=== PATIENT | male | born 1950 | race African-American/Black ===

== ENCOUNTER 2018-10-30 06:26 | Day surgery (SDC) | payer OTHER ==
[2018-10-29 09:09] VITALS: BMI 31.6
[~2018-10-30 06:26] MED LIST: TOBRAMYCIN/DEXAMETHASONE OPHTH. OINTMENT 1 TUBE OS ONE
[2018-10-30] MEDS ORDERED: CIPROFLOXACIN HCL 0.3% OPHTH 2.5ML BOTTLE OP SCH (06:45)
[2018-10-30] MEDS ORDERED: ACETAMINOPHEN 325 MG TABLET (FP) PO PRN (06:45)
[2018-10-30] MEDS ORDERED: TROPICAMIDE 1% OPHTH SOLN 15 ML BOTTLE OP SCH (06:45)
[2018-10-30] MEDS ORDERED: PHENYLEPHRINE 2.5% OPHTH SOLN 15 ML BOTTLE OP SCH (06:45)
[2018-10-30] MEDS ORDERED: KETOROLAC TROMETHAMINE 0.5% EYE DROP 1 DROP DROPS OP SCH (06:45)
[2018-10-30] MEDS ORDERED: CHONDROITIN SU A/HYALUR SOD 1 KIT ONE (07:10)
[2018-10-30] MEDS ORDERED: TOBRAMYCIN/DEXAMETHASONE OPHTH. OINTMENT 1 TUBE ONE (07:23)
[2018-10-30] MEDS ORDERED: EPINEPHrine/PF 1 MG/1 ML (1:1,000) AMPULE ONE (07:23)
[2018-10-30] MEDS ORDERED: TETRACAINE 0.5% OPHTH SOLN 2 ML BOTTLE ONE (07:23)
[2018-10-30] MEDS ORDERED: LIDOCAINE HCL/PF 1% SDV 5ML VIAL ONE (07:23)
[2018-10-30] MEDS ORDERED: CIPROFLOXACIN HCL 0.3% OPHTH 2.5ML BOTTLE ONE (08:11)
[2018-10-30] MEDS ORDERED: DICLOFENAC SODIUM 0.1% OPHTHALMIC 2.5ML BOTTLE ONE (08:11)
[2018-10-30] MEDS ORDERED: TROPICAMIDE 0.5% OPHTHALMIC SOLN 15 ML BOTTLE ONE (08:11)
[2018-10-30] MEDS ORDERED: PHENYLEPHRINE 2.5% OPHTH SOLN 15 ML BOTTLE OS ONE ×3 (08:40→08:50)
[2018-10-30] MEDS ORDERED: CIPROFLOXACIN 0.3% EYE DROPS 5 ML BOTTLE OS ONE ×3 (08:40→08:50)
[2018-10-30] MEDS ORDERED: TROPICAMIDE 0.5% OPHTHALMIC SOLN 15 ML BOTTLE OS ONE ×3 (08:40→08:50)
[2018-10-30] MEDS ORDERED: KETOROLAC TROMETHAMINE 0.5% EYE DROP 1 DROP DROPS OS ONE ×2 (08:45→08:50)
[2018-10-30] MEDS ORDERED: ALBUTEROL SO4 0.083% IH SOL 2.5 MG/3 ML VIAL.NEB. NEB ONE ×3 (08:46→09:05)
--- NOTE | 2018-10-30 08:49 | HP ---
History & Physical Update - History History: No Change - Physical Physical: No Change - Assessment Assessment: No Change - Plan Plan: No Change (H and P reviewed from Dr. Ordonez from 10/17/18 no changes)
--- NOTE | 2018-10-30 08:54 | HP ---
- Patient Scheduled date of Surgery: 10/30/18 Scheduled Surgical Procedure: Phacoemulsification and cataract extraction with PCIOL Affected Eye: Left Chief Complaint (Indication for surgery): Decreased vision affecting ADLs - Ocular History Other Eye History: Other (MATEO , ptosis OD) Eye Medications: lumigan qhs ou , vigamox o/3 , AT prn Previous Eye Surgery: none - Medical History Illnesses: Hypertension, Hypercholesterolemia, Other (COPD, asthma, gout) Current Medications: Ambulatory Orders Rosuvastatin [Crestor -] 10 mg PO HS 08/30/16 Acetaminophen [Tylenol .Regular Strength -] 650 mg PO Q6H PRN #0 tablet Amlodipine Besylate [Norvasc -] 10 mg PO DAILY #30 tablet 09/03/16 Carvedilol [Coreg -] 25 mg PO BID #60 tablet 09/03/16 Furosemide [Lasix -] 40 mg PO DAILY #30 tablet 09/03/16 Spironolactone [Aldactone -] 25 mg PO DAILY #30 tablet 09/03/16 Allergies/Adverse Reactions: Allergies Allergy/AdvReac Type Severity Reaction Status Date / Time No Known Allergies Allergy Verified 08/30/16 16:05 Ocular Examination - Best Corrected Visual Acuity Distance: Right eye: 20/40- Distance: Left eye: 20/50-2 - External/Slit Lamp Examination Abnormalities: decreased TBUT, spk, stromal scar ST , arcus - Intraocular Pressure Intraocular Pressure - Right eye: 19 Intraocular Pressure-Left eye: 19 - Lens Lens: 1+ NS 2+ cortical superonasally - Vitreous/Retina Vitreous/Retina: C:D 0.35 m/v/p wnl - Special Examination M - Right eye: -0.50-0.50 x 090 M - Left eye: -1.50-150 x 090 K - Right eye: 23.99 K - Left eye: 24.03 AL - Right eye: 23.99 AL - Left eye: 24.03 IOL bag: +18.0 Auooto IOL sulcus: +17.o MN60AC IOL AC: +15.0 MTA4uo - Impression Impression: Cataract Left Eye - Plan Plan: Phacoemulsification and cataract extraction - IOL Left eye Post-hospital care will be provided in office on: 10/31/18
[2018-10-30] MEDS ORDERED: MIDAZOLAM HCL 2 MG/2 ML SINGLE DOSE VIAL ONE (09:07)
[2018-10-30] MEDS ORDERED: TETRACAINE 0.5% OPHTH SOLN 2 ML BOTTLE OS ONE (09:09)
[2018-10-30] MEDS ORDERED: POVIDONE-IODINE 5% OPHTHALMIC PREP 30 ML SOLUTION OS ONE (09:10)
[2018-10-30] MEDS ORDERED: CHONDROITIN SU A/HYALUR SOD 1 KIT IO ONE (09:19)
[2018-10-30] MEDS ORDERED: BSS (NA/CA/MG/K) BALANCED SALT SOLUTION OPHTH SOLN 15 ML BOTTLE OS ONE (09:19)
[2018-10-30] MEDS ORDERED: LIDOCAINE HCL 1% PRESERVATIVE FREE - 30ML VIAL IO ONE (09:19)
[2018-10-30] MEDS ORDERED: EPINEPHrine/PF 1 MG/1 ML (1:1,000) AMPULE SQ ONE (09:25)
[2018-10-30] MEDS ORDERED: TOBRAMYCIN/DEXAMETHASONE OPHTH. OINTMENT 1 TUBE OS ONE (09:45)
--- NOTE | 2018-10-30 09:52 | OP ---
Ophthalmology Operative Note Pre-Operative Diagnosis: Cataract Affected Eye: Left Operation: Phacoemulsification and cataract extraction with PCIOL Findings: Ns Cataract left eye Post-Operative Diagnosis: Same as Pre-op Finishing Area Operator: None Anesthesiologist: Soco Tamayo MD Anesthesia: Topical Specimens Removed: none Estimated blood loss: < 1 cc Drains & Tubes with Location: none Operative Report Dictated: Yes
--- NOTE | 2018-10-30 10:45 | OP ---
DATE OF OPERATION: DATE OF DICTATION: 10/30/2018 PREOPERATIVE DIAGNOSIS: Nuclear sclerotic cataract, left eye. POSTOPERATIVE DIAGNOSIS: Nuclear sclerotic cataract, left eye. PROCEDURE: Phacoemulsification and cataract extraction with insertion of posterior chamber intraocular lens, left eye. SURGEON: Chasity Lind MD BOOT REPAIRER: None. ANESTHESIA: Topical. ANESTHESIOLOGIST: Soco Tamayo MD OPERATIVE PROCEDURE: Before the procedure, the patient received albuterol treatment and was then given tetracaine eye drops and gently sedated and prepped and draped in the usual sterile fashion so as to expose only the left eye. Ophthalmic Betadine was instilled into the inferior fornix. The lashes were taped out of the surgical field. An eyelid speculum was placed into the left eye. A paracentesis was made in inferior clear cornea at the limbus. Then 0.5% of nonpreserved lidocaine 1% was injected into the anterior chamber. Viscoelastic material was instilled into the anterior chamber via the paracentesis. A 2.4-mm keratome was then used to create the main incision in temporal clear cornea at the limbus. A continuous curvilinear capsulorrhexis was performed using a cystotome and Utrata forceps. Hyrodissection of the lens cortex was performed using BSS on a cannula until the nucleus was noted to be freely rotating. The phacoemulsification tip was then inserted via the main wound and used to sculpt 2 perpendicular grooves into the lens nucleus. The lens nucleus was cracked into 4 quadrants. Each quadrant was lifted out of the capsule into the iris plane and individually phacoemulsified. The remaining cortical material was then aspirated using the irrigation and aspiration port. The capsular bag was inflated using Provisc, and a preloaded Hoya lens model [id number], power +18.0 diopter was injected into the capsular bag and centered using a Sinskey hook. The residual viscoelastic material was removed from the anterior chamber using irrigation and aspiration. The wound edges were hydrated using BSS. The wound was tested for leakage. The paracentesis was slightly leaky; therefore, one 10-0 nylon suture was placed across the paracentesis and again checked for leakage. It was found to be watertight. One drop of Tobradex ointment was placed into the eye, and the speculum was removed from the eye, and the eyelid was closed. A sterile dressing and shield were placed over the eye, and the patient was transferred to the recovery room in stable condition and told to follow up in 1 day. CHASITY LIND M.D. [id number]
[2018-10-30 11:06] VITALS: BP 122/70; PULSE 78; TEMP 97.9
== END 2018-10-30 11:19 | disposition home or self-care (01) ==
LOC: JASU-SURG 06:26
PROVIDERS: ATTEND Ophthalmology
PROC: 08RK3JZ Replacement of Left Lens with Synthetic Substitute, Percutaneous Approach (ICD-10-PCS; principal; 2018-10-30 08:30)
DX: H25.12 Age-related nuclear cataract, left eye (principal)

== ENCOUNTER 2018-12-04 06:28 | Day surgery (SDC) | payer OTHER ==
[2018-12-03 11:30] VITALS: BMI 31.1
--- NOTE | 2018-12-03 19:25 | HP ---
- Patient Scheduled date of Surgery: 12/04/18 Scheduled Surgical Procedure: Phacoemulsification and cataract extraction with PCIOL Affected Eye: Right Chief Complaint (Indication for surgery): Decreased vision affecting ADLs - Ocular History Other Eye History: Other (ptosis) Eye Medications: lumigan, vigamox Previous Eye Surgery: s/p ce/pciol OS - Medical History Illnesses: Asthma, COPD, Hypertension, Hypercholesterolemia, Other (gout) Current Medications: Ambulatory Orders Rosuvastatin [Crestor -] 10 mg PO HS 08/30/16 Acetaminophen [Tylenol .Regular Strength -] 650 mg PO Q6H PRN #0 tablet Amlodipine Besylate [Norvasc -] 10 mg PO DAILY #30 tablet 09/03/16 Carvedilol [Coreg -] 25 mg PO BID #60 tablet 09/03/16 Furosemide [Lasix -] 40 mg PO DAILY #30 tablet 09/03/16 Spironolactone [Aldactone -] 25 mg PO DAILY #30 tablet 09/03/16 Aspirin 81 mg PO DAILY 12/03/18 Allergies/Adverse Reactions: Allergies Allergy/AdvReac Type Severity Reaction Status Date / Time No Known Allergies Allergy Verified 12/03/18 11:18 Ocular Examination - Best Corrected Visual Acuity Distance: Right eye: 20/40 Distance: Left eye: 20/25 - External/Slit Lamp Examination Abnormalities: arcus, spk - Intraocular Pressure Intraocular Pressure - Right eye: 19 Intraocular Pressure-Left eye: 19 - Lens Lens: 2+ NS 2+ cortical - Vitreous/Retina Vitreous/Retina: c:d 0.5 m/v/p wnl - Special Examination M - Right eye: -0.50-0.50 x90 M - Left eye: +0.50-1.00 x 075 K - Right eye: 44.5/45 x 100 K - Left eye: 44/45 X 165 AL - Right eye: 23.99 AL - Left eye: 24.03 IOL bag: +18.8 Auooto IOL sulcus: +17.5 [id number] IOL AC: +15.5 mta4uo - Impression Impression: Cataract Right Eye - Plan Plan: Phacoemulsification and cataract extraction - IOL Right eye Post-hospital care will be provided in office on: 12/05/18
[~2018-12-04 06:28] MED LIST changes: -TOBRAMYCIN/DEXAMETHASONE OPHTH. OINTMENT 1 TUBE OS ONE; +TOBRAMYCIN/DEXAMETHASONE OPHTH. OINTMENT 1 TUBE TP ONE
[2018-12-04] MEDS ORDERED: TROPICAMIDE 1% OPHTH SOLN 15 ML BOTTLE ONE (06:49)
[2018-12-04] MEDS: PHENYLEPHRINE 2.5% OPHTH SOLN 15 ML BOTTLE OP SCH ×3 (06:50→07:10)
[2018-12-04] MEDS: TROPICAMIDE 1% OPHTH SOLN 15 ML BOTTLE OP SCH ×3 (06:50→07:11)
[2018-12-04] MEDS: CIPROFLOXACIN HCL 0.3% OPHTH 2.5ML BOTTLE OP SCH ×3 (06:50→07:10)
[2018-12-04] MEDS: KETOROLAC TROMETHAMINE 0.5% EYE DROP 1 DROP DROPS OP SCH ×3 (06:50→07:10)
[2018-12-04 07:00] VITALS: TEMP 98
[2018-12-04] MEDS ORDERED: CHONDROITIN SU A/HYALUR SOD 1 KIT ONE (07:13)
[2018-12-04] MEDS ORDERED: EPINEPHrine/PF 1 MG/1 ML (1:1,000) AMPULE ONE (07:15)
[2018-12-04] MEDS ORDERED: LIDOCAINE HCL/PF 1% SDV 5ML VIAL ONE (07:15)
[2018-12-04] MEDS ORDERED: TOBRAMYCIN/DEXAMETHASONE OPHTH. OINTMENT 1 TUBE ONE ×2 (07:15→07:17)
[2018-12-04] MEDS ORDERED: ACETYLCHOLINE 1:100 INTRA-OCUL 20 MG/2 ML KIT ONE (07:16)
[2018-12-04] MEDS ORDERED: POVIDONE-IODINE 5% OPHTHALMIC PREP 30 ML SOLUTION ONE (07:16)
[2018-12-04] MEDS ORDERED: TETRACAINE 0.5% OPHTH SOLN 2 ML BOTTLE ONE (07:16)
--- NOTE | 2018-12-04 07:23 | HP ---
History & Physical Update - History History: No Change - Physical Physical: No Change - Assessment Assessment: No Change - Plan Plan: No Change (H and P reviewed ny dr Ordonez 10/17/18 no changes)
[2018-12-04] MEDS ORDERED: ACETAMINOPHEN 325 MG TABLET (FP) PO PRN (07:30)
[2018-12-04] MEDS ORDERED: TETRACAINE 0.5% OPHTH SOLN 2 ML BOTTLE OD ONE (07:55)
[2018-12-04] MEDS ORDERED: POVIDONE-IODINE 5% OPHTHALMIC PREP 30 ML SOLUTION OD ONE (07:56)
[2018-12-04] MEDS ORDERED: BSS (NA/CA/MG/K) BALANCED SALT SOLUTION OPHTH SOLN 15 ML BOTTLE OD ONE (08:03)
[2018-12-04] MEDS ORDERED: LIDOCAINE HCL 1% PRESERVATIVE FREE - 30ML VIAL IO ONE (08:03)
[2018-12-04] MEDS ORDERED: CHONDROITIN SU A/HYALUR SOD 1 KIT IO ONE (08:03)
[2018-12-04] MEDS ORDERED: EPINEPHrine/PF 1 MG/1 ML (1:1,000) AMPULE SQ ONE (08:09)
[2018-12-04] MEDS ORDERED: TOBRAMYCIN/DEXAMETHASONE OPHTH. OINTMENT 1 TUBE TP ONE (08:25)
--- NOTE | 2018-12-04 08:34 | OP ---
Ophthalmology Operative Note Pre-Operative Diagnosis: Cataract Affected Eye: Right Operation: Phacoemulsification and cataract extraction with PCIOL Findings: Ns cataract right eye Post-Operative Diagnosis: Same as Pre-op General Distillery Worker: None Anesthesiologist: Mahesh Benito Anesthesia: Topical Specimens Removed: none Estimated blood loss: < 1 cc Drains & Tubes with Location: none Operative Report Dictated: Yes
[2018-12-04 09:03] VITALS: BP 140/84; PULSE 18
--- NOTE | 2018-12-04 13:34 | OP ---
DATE OF OPERATION: 12/04/2018 PREOPERATIVE DIAGNOSIS: Nuclear sclerotic cataract, right eye. POSTOPERATIVE DIAGNOSIS: Nuclear sclerotic cataract, right eye. PROCEDURE: Phacoemulsification and cataract extraction with insertion of posterior chamber intraocular lens, right eye. SURGEON: Chasity Lind MD RENAL MEDICINE SPECIALIST: None. ANESTHESIA: Topical. ANESTHESIOLOGIST: Mahesh Benito MD OPERATIVE PROCEDURE: The patient received tetracaine eye drops, and was then prepped and draped in the usual sterile fashion to expose only the right eye. Ophthalmic Betadine was instilled into the inferior fornix, and the lashes were taped out of the surgical field. An eyelid speculum was placed into the right eye. A paracentesis was made in superotemporal clear cornea at the limbus. Nonpreserved lidocaine 1%, 0.5 mL, was injected into the anterior chamber. Viscoelastic material was instilled into the anterior chamber via the paracentesis. A 2.4-mm keratome was then used to create the main incision in temporal clear cornea at the limbus. A continuous curvilinear capsulorrhexis was performed using a cystotome and Utrata forceps. Hydrodissection of the lens cortex was performed using BSS on a cannula until the nucleus was noted to be freely rotating. The phacoemulsification tip was inserted via the main wound and used to sculpt 2 perpendicular grooves into the lens nucleus. The nucleus was cracked into 4 quadrants. Each quadrant was lifted out of the capsule into the iris plane and individually phacoemulcified. The remaining cortical material was then aspirated using the irrigation and aspiration port. The capsular bag was inflated using Provisc, and a preloaded AcrySof lens, model [id number], power +18.5 diopters, was injected into the capsular bag and centered using a Sinskey hook. The residual viscoelastic material was removed from the anterior chamber using irrigation and aspiration. The wound edges were hydrated using BSS. The wound was tested for leakage. It was found to be watertight. TobraDex ointment was placed into the eye, and the speculum was removed from the eye, and eyelid was closed. A sterile dressing and shield were placed over the eye, and the patient was transferred to the recovery room in stable condition, told to follow up in 1 day. CHASITY LIND M.D. [id number]
== END 2018-12-04 10:50 | disposition home or self-care (01) ==
LOC: JASU-SURG 06:28
PROVIDERS: ATTEND Ophthalmology
PROC: 08RJ3JZ Replacement of Right Lens with Synthetic Substitute, Percutaneous Approach (ICD-10-PCS; principal; 2018-12-04 07:30)
DX: H25.11 Age-related nuclear cataract, right eye (principal)

== ENCOUNTER 2019-08-19 15:21 | Inpatient (IN) | payer OTHER ==
--- NOTE | 2019-08-19 15:36 | PDOC ---
Rapid Medical Evaluation Time Seen by Provider: 08/19/19 15:31 Medical Evaluation: Allergies Allergy/AdvReac Type Severity Reaction Status Date / Time No Known Allergies Allergy Verified 12/04/18 07:00 08/19/19 15:33 Patient c/o: left arm swelling x 2 weeks, completed 2 courses of abx, u/s - for dvt last week, + pain to left elbow Patient on brief exam: 2+ nonpitting edema to left elbow- hand, no erythema FROM of extremity Patient ordered for: duplex, comp, cbc Patient to proceed to the ED Discharge Disposition - Diagnosis Cellulitis - Discharge Dispostion Condition at time of disposition: Fair - Referrals - Patient Instructions - Post Discharge Activity
[2019-08-19 16:46] LABS: BASO % 0.7 % (0-2.0); EOS % 9.5 % (0-4.5); HEMATOCRIT 45.6 % (35.4-49); HEMOGLOBIN 14.8 GM/dL (11.7-16.9); LYMPH % 24.5 % (8-40); MCH 27.7 pg (25.7-33.7); MCHC 32.4 g/dl (32.0-35.9); MEAN CELL VOLUME 85.5 fl (80-96); MEAN PLT VOLUME 9.9 fl (7.5-11.1); MONO % 7.6 % (3.8-10.2); NEUT % 57.7 % (42.8-82.8); PLATELET COUNT 199 K/MM3 (134-434); RBC 5.34 M/mm3 (4.00-5.60); RDW 14.7 % (11.9-15.9); WHITE BLOOD COUNT 5.8 K/mm3 (4.0-10.0)
[2019-08-19 17:02] LABS: ALBUMIN 3.5 g/dl (3.4-5.0); BILIRUBIN,TOTAL 0.2 mg/dL (0.2-1); CALCIUM 9.4 mg/dL (8.5-10.1); CREATININE 1.3 mg/dL (0.55-1.3); POTASSIUM 3.9 mmol/L (3.5-5.1)
[2019-08-19] MEDS ORDERED: ACETAMINOPHEN 500 MG TABLET (FP) PO ONE (18:33)
--- NOTE | 2019-08-19 18:58 | PDOC ---
History of Present Illness - General Chief Complaint: Edema Stated Complaint: SENT BY PCP Time Seen by Provider: 08/19/19 15:31 History Source: Patient Exam Limitations: No Limitations - History of Present Illness Initial Comments: 08/19/19 18:42 HISTORY OF PRESENT ILLNESS: 69-year-old male past medical history of hypertension, CHF, gout who presents to the emergency department for evaluation of left elbow pain, swelling and erythema for the past 2 weeks. Patient reports symptoms started after having a blood draw performed in the left antecubital. As patient has a history of gout he was started on Uloric and has been taking colchicine with minimal relief of symptoms. Patient was seen and evaluated by his primary doctor who started him on Keflex. After 5 days of Keflex symptoms did not improve and patient was transitioned to clindamycin. Patient has been taking clindamycin for 2 days and has noted no improvement in symptoms. He contacted his primary doctor who referred him to the emergency department for inpatient admission of IV antibiotics. No recent travel or sick contacts. PAST MEDICAL HISTORY: Denies past medical history SURGICAL HISTORY: Denies ALLERGIES: No known drug allergies REVIEW OF SYSTEMS General/Constitutional: Denies fever or chills. Denies weakness, weight change. HEENT: Denies change in vision. Denies ear pain or discharge. Denies sore throat. Cardiovascular: Denies chest pain or shortness of breath. Respiratory: Denies cough, wheezing, or hemoptysis. Gastrointestinal: Denies nausea, vomiting, diarrhea or constipation. Denies rectal bleeding. Genitourinary: Denies dysuria, frequency, or change in urination. Musculoskeletal: See HPI Skin and breasts: Denies rash or easy bruising. Neurologic: Denies headache, vertigo, loss of consciousness, or loss of sensation. Psychiatric: Denies depression or anxiety. Endocrine: Denies increased thirst. Denies abnormal weight change. Hematologic/Lymphatic: Denies anemia, easy bleeding, or history of blood clots. Allergic/Immunologic: Denies hives or skin allergy. Denies latex allergy. PHYSICAL EXAM General Appearance: Well-appearing, appropriately dressed. No apparent distress , no intoxication. Respiratory/Chest: Lungs CTAB. No shortness of breath, chest tenderness, respiratory distress, accessory muscle use. No crackles, rales, rhonchi, stridor , wheezing, dullness Cardiovascular: RRR. S1, S2. No JVD, murmur, bradycardia, tachycardia. Vascular Pulses: Dorsalis-Pedis (R): 2+, Dorsalis-Pedis (L): 2+ Gastrointestinal/Abdominal: Normal bowel sounds. Abdomen soft, non-distended. No tenderness or rebound tenderness. No organomegaly, pulsatile mass, guarding, hernia, hepatomegaly, splenomegaly. Lymphatic: No adenopathy, tenderness. Musculoskeletal/Extremities: Left elbow erythematous and swollen from the elbow to the dorsum of the left hand. Decreased range of motion with flexion but able to flex beyond 90 degrees actively. No bony tenderness, crepitus, deformity or step-off is present. Swelling is present over the dorsum of the forearm extending from dorsum of the hand to the elbow. Area is slightly erythematous and warm to touch. No effusion is present. Neurovascularly intact. Neurologic: solid state tester II-XII intact. Fully oriented, alert. Appropriate mood/affect. Motor strength 5/5. No appreciable EOM palsy, facial droop or sensory deficit. Past History - Past Medical History Allergies/Adverse Reactions: Allergies Allergy/AdvReac Type Severity Reaction Status Date / Time No Known Allergies Allergy Verified 08/19/19 15:35 Home Medications: Ambulatory Orders Rosuvastatin [Crestor -] 10 mg PO HS 08/30/16 Amlodipine Besylate [Norvasc -] 10 mg PO DAILY #30 tablet 09/03/16 Carvedilol [Coreg -] 25 mg PO BID #60 tablet 09/03/16 Aspirin 81 mg PO DAILY 12/03/18 Budesonide/Formeterol Fumarate [SYMBICORT 160/4.5mcg -] 1 inh PO DAILY 08/19/19 Cholecalciferol (Vitamin D3) [Vitamin D3 -] 50,000 unit PO WEEKLY 08/19/19 Clindamycin [Cleocin -] 300 mg PO TID 08/19/19 Febuxostat [Uloric] 40 mg PO DAILY PRN 08/19/19 Furosemide [Lasix -] 40 mg PO BID 08/19/19 Anemia: No Asthma: Yes (QUESTIONABLE?) Cancer: No Cardiac Disorders: Yes (CARDIAC CATH NEGATIVE) CVA: No COPD: No CHF: No Dementia: No Diabetes: No GI Disorders: No Disorders: No HTN: Yes Hypercholesterolemia: Yes Liver Disease: No Seizures: No Thyroid Disease: No - Surgical History Abdominal Surgery: No Appendectomy: No Cardiac Surgery: Yes Cholecystectomy: No Lung Surgery: No Neurologic Surgery: No Orthopedic Surgery: No - Psycho Social/Smoking Cessation Hx Smoking History: Never smoked Have you smoked in the past 12 months: No Hx Alcohol Use: Yes (SOCIAL) Drug/Substance Use Hx: No Substance Use Type: None Hx Substance Use Treatment: No *Physical Exam - Vital Signs Last Vital Signs Temp Pulse Resp BP Pulse Ox 98 F 83 18 166/90 97 08/19/19 15:31 08/19/19 15:31 08/19/19 15:31 08/19/19 15:31 08/19/19 15:31 Procedures - Consent Consent obtained: Verbal, From Patient - Incision and Drainage I&D Site: Left: Arm Betadine cleansed: Yes Volume(ml): 1 Blade Size: Needle aspiration Attempts: 1 Plain Packing: No Complications: none Dressing: Yes Progress: 08/19/19 20:03 Patient tolerated well. ED Treatment Course - LABORATORY CBC & Chemistry Diagram: 08/19/19 15:37 08/19/19 15:37 - ADDITIONAL ORDERS Additional order review: Laboratory Results 08/19/19 15:37 Sodium 140 Potassium 3.9 Chloride 104 Carbon Dioxide 30 Anion Gap 6 L BUN 20.0 H Creatinine 1.3 Est GFR (CKD-EPI)AfAm 65.44 Est GFR (CKD-EPI)NonAf 56.46 Random Glucose 105 Calcium 9.4 Total Bilirubin 0.2 AST 15 ALT 24 Alkaline Phosphatase 95 Total Protein 7.0 Albumin 3.5 08/19/19 15:37 RBC 5.34 MCV 85.5 MCHC 32.4 RDW 14.7 MPV 9.9 Neutrophils % 57.7 Lymphocytes % 24.5 D Monocytes % 7.6 Eosinophils % 9.5 H D Basophils % 0.7 - RADIOLOGY Radiology Studies Ordered: Category Date Time Status CHEST PA & LAT [RAD] Stat Radiology 08/19/19 18:31 Ordered ELBOW-LEFT [RAD] Stat Radiology 08/19/19 18:31 Ordered Medical Decision Making - Medical Decision Making 08/19/19 18:58 A/P: 69-year-old male with left elbow pain, erythema and swelling for 2 weeks Laboratory testing performed by rapid medical evaluation reveals no significant abnormalities. Ultrasound reveals no DVT. 3 cm x 4 cm ovoid hyperpigmented fluctuant mass present over the proximal ulna- hematoma versus abscess As patient is failed outpatient antibiotics will admit for cellulitis of the elbow. Blood cultures Needle aspiration of ovoid mass-I&D if pus is present Vancomycin Zosyn Chest x-ray EKG X-ray of the left elbow 08/19/19 19:01 08/19/19 19:14 Needle aspiration performed-see procedure note for details Wound culture, cell count, Gram stain 08/19/19 19:40 Case has been discussed with the hospitalist service who accepts for [facility] [place] inpatient admission under Dr. Jones. 08/19/19 20:02 Received call from laboratory stating they are unable to run cell count is mostly clotted. I will not re-aspirate at this time. Discharge - Discharge Information Problems reviewed: Yes Clinical Impression/Diagnosis: Cellulitis Qualifiers: Site of cellulitis: extremity Site of cellulitis of extremity: upper extremity Laterality: left Qualified Code(s): L03.114 - Cellulitis of left upper limb Condition: Fair - Admission Yes - Follow up/Referral - Patient Discharge Instructions - Post Discharge Activity
[2019-08-19] MEDS ORDERED: VANCOMYCIN 1 GM in D5W (PRE-DOCKED) 1,000 MG/250 ML IVPB ONE (19:22)
[2019-08-19] MEDS ORDERED: CEFTRIAXONE 1,000 MG in DEXTROSE 5%-WATER - 50 ML IVPB ONE (19:22)
[2019-08-19] MEDS ORDERED: ACETAMINOPHEN 325 MG TABLET (FP) ONE (20:03)
[2019-08-19] MEDS ORDERED: CEFTRIAXONE 1 GM/50 ML BAG ONE (20:04)
--- NOTE | 2019-08-19 20:06 | HP ---
Admitting History and Physical - Primary Care Physician PCP: Dr. Jones - Admission Chief Complaint: left elbow pain, edema History of Present Illness: 69-year-old male PMHx of hypertension, CHF, gout arrived to ED for evaluation of left elbow pain, swelling and erythema for the past 2 weeks. Patient reports symptoms started after having a blood draw done in left antecubital. As patient has a history of gout he was started on Uloric and has been taking colchicine with minimal relief of symptoms. Patient was seen by PMD started on Keflex, after completing antibiotic therapy symptoms did not improve and patient was started on clindamycin. Patient has been taking clindamycin for 2 days without improvement, PMD referred patient emergency department for inpatient admission of IV antibiotics. History Source: Patient Limitations to Obtaining History: No Limitations - Past Medical History Cardiovascular: Yes: CAD, CHF, HTN Pulmonary: Yes: Asthma Rheumatology: Yes: Gout - Past Surgical History Past Surgical History: Yes: None - Smoking History Smoking history: Never smoked Have you smoked in the past 12 months: No - Alcohol/Substance Use Hx Alcohol Use: Yes (SOCIAL) History of Substance Use: reports: None - Social History Usual Living Arrangement: Yes: With Spouse ADL: Independent Occupation: production inspector for [employer] History of Recent Travel: No Home Medications - Allergies Allergies/Adverse Reactions: Allergies Allergy/AdvReac Type Severity Reaction Status Date / Time No Known Allergies Allergy Verified 08/19/19 15:35 - Home Medications Home Medications: Ambulatory Orders Rosuvastatin [Crestor -] 10 mg PO HS 08/30/16 Amlodipine Besylate [Norvasc -] 10 mg PO DAILY #30 tablet 09/03/16 Carvedilol [Coreg -] 25 mg PO BID #60 tablet 09/03/16 Aspirin 81 mg PO DAILY 12/03/18 Budesonide/Formeterol Fumarate [SYMBICORT 160/4.5mcg -] 1 inh PO DAILY 08/19/19 Cholecalciferol (Vitamin D3) [Vitamin D3 -] 50,000 unit PO WEEKLY 08/19/19 Clindamycin [Cleocin -] 300 mg PO TID 08/19/19 Febuxostat [Uloric] 40 mg PO DAILY PRN 08/19/19 Furosemide [Lasix -] 40 mg PO BID 08/19/19 Family Medical History Family History: Denies Review of Systems - Review of Systems Constitutional: reports: No Symptoms Eyes: reports: No Symptoms HENT: reports: No Symptoms Neck: reports: No Symptoms Cardiovascular: reports: No Symptoms Respiratory: reports: No Symptoms Gastrointestinal: reports: No Symptoms Genitourinary: reports: No Symptoms Musculoskeletal: reports: Extremity Pain (left elbow pain, erythema and swelling ) Integumentary: reports: Erythema (left elbow) Neurological: reports: No Symptoms Endocrine: reports: No Symptoms Hematology/Lymphatic: reports: No Symptoms Psychiatric: reports: No Symptoms Physical Examination Vital Signs: Vital Signs Temperature 98 F 08/19/19 15:31 Pulse Rate 83 08/19/19 15:31 Respiratory Rate 18 08/19/19 15:31 Blood Pressure 166/90 08/19/19 15:31 O2 Sat by Pulse Oximetry (%) 97 08/19/19 15:31 Constitutional: Yes: No Distress, Calm Eyes: Yes: Conjunctiva Clear, EOM Intact HENT: Yes: Atraumatic, Normocephalic Neck: Yes: Supple, Trachea Midline Respiratory: Yes: Regular, CTA Bilaterally Gastrointestinal: Yes: Normal Bowel Sounds, Soft Musculoskeletal: Yes: Joint Swelling (left elbow pain, erythema and swelling) Extremities: Yes: Erythema (left elbow) Edema: Yes Edema: LUE: 1+ Peripheral Pulses WNL: Yes Integumentary: Yes: Erythema (left elbow swelling, erythema, pain slight tender to touch) Neurological: Yes: Alert, Oriented Labs: CBC, BMP 08/19/19 15:37 08/19/19 15:37 Imaging - Results Chest X-ray: Report Reviewed (no acute lung disease) X-ray: Report Reviewed (left elbow: no fx/ dislocation) Ultrasound: Report Reviewed (Ultrasound reveals negative for DVT. 3 cm x 4 cm ovoid hyperpigmented fluctuant mass present over the proximal ulna-hematoma versus abscess) Problem List - Problems (1) Cellulitis Code(s): L03.90 - CELLULITIS, UNSPECIFIED Qualifiers: Site of cellulitis: extremity Site of cellulitis of extremity: upper extremity Laterality: left Qualified Code(s): L03.114 - Cellulitis of left upper limb (2) HTN (hypertension) Code(s): I10 - ESSENTIAL (PRIMARY) HYPERTENSION (3) HLD (hyperlipidemia) Code(s): E78.5 - HYPERLIPIDEMIA, UNSPECIFIED (4) CHF (congestive heart failure) Code(s): I50.9 - HEART FAILURE, UNSPECIFIED (5) CAD (coronary artery disease) Code(s): I25.10 - ATHSCL HEART DISEASE OF [place] CORONARY ARTERY W/O ANG PCTRS (6) Gout Code(s): M10.9 - GOUT, UNSPECIFIED Assessment/Plan 69-year-old male PMHx of HTN,CAD, HLD, CHF, Gout, ? Asthma arrived to ED for evaluation of left elbow pain, swelling and erythema for the past 2 weeks. Patient failed two outpatient antibiotic course, with minimal relief in symptoms , arrived to ED for inpatient IV antibiotics. # Left elbow cellulitis - pt failed with outpatient keflex/clindamycin - CXR: negative - cbc show high eosinophils count - 9.5% - cmp unremarkable - left elbow XR: negative for fx/dislocation - Ultrasound reveals negative for DVT. 3 cm x 4 cm ovoid hyperpigmented fluctuant mass present over the proximal ulna-hematoma versus abscess - Needle aspiration done in ED - noted blood, no pus - sent for Wound culture, cell count, Gram stain - given dose of Tylnenol, Vanco and Rocephin x1 in ED - continue with Ceftriaxone - Tylenol Q6 PRN - Follow up ID in AM - Follow cultures # GOUT - Febuxostat 40 mg PO DAILY PRN - Follow up Uric level # HTN/HLD/ CHF -Rosuvastatin 10 mg PO HS -Amlodipine Besylate 10 mg PO DAILY -Carvedilol 25 mg PO BID -Aspirin 81 mg PO DAILY -Furosemide 40 mg PO BID -Monitor I & O -Fluid restriction #Asthma -SYMBICORT 160/4.5mcg 1 inh PO DAILY VTE: Heparin SQ FEN: cardiac diet, monitor renal function Dispo: Inpatient Medicine Visit type - Emergency Visit Emergency Visit: Yes ED Registration Date: 08/19/19 Care time: The patient presented to the Emergency Department on the above date and was hospitalized for further evaluation of their emergent condition. - New Patient This patient is new to me today: Yes Date on this admission: 08/20/19 - Critical Care Critical Care patient: No
[2019-08-19] MEDS ORDERED: FEBUXOSTAT 40 MG TAB PO PRN (20:24)
[2019-08-19] MEDS ORDERED: ACETAMINOPHEN 325 MG TABLET (FP) PO PRN (20:25)
[2019-08-19] MEDS ORDERED: HEPARIN NA (PORCINE) 5,000 UNITS/ML 1ML VIAL ONE (22:23)
[2019-08-19] MEDS ORDERED: CARVEDILOL 12.5 MG TABLET (FP) ONE (22:23)
[2019-08-19] MEDS: CARVEDILOL 25 MG TABLET (FP) PO SCH (22:29)
[2019-08-19] MEDS: HEPARIN NA (PORCINE) 5,000 UNITS/ML 1ML VIAL SQ SCH (22:29)
[2019-08-19] MEDS: ROSUVASTATIN CA 10 MG TABLET (FP) PO SCH (22:39)
[2019-08-19 22:43] LABS: URIC ACID 7.7 mg/dL (2.6-7.2)
[2019-08-20] MEDS ORDERED: FUROSEMIDE 40 MG TABLET (FP) ONE (06:31)
[2019-08-20] MEDS: FUROSEMIDE 40 MG TABLET (FP) PO SCH ×2 (06:35→15:48)
[2019-08-20 07:11] LABS: HEMATOCRIT 45.4 % (35.4-49); HEMOGLOBIN 14.8 GM/dL (11.7-16.9); MCH 27.6 pg (25.7-33.7); MCHC 32.5 g/dl (32.0-35.9); MEAN CELL VOLUME 84.9 fl (80-96); MEAN PLT VOLUME 9.4 fl (7.5-11.1); PLATELET COUNT 181 K/MM3 (134-434); RBC 5.35 M/mm3 (4.00-5.60); RDW 14.7 % (11.9-15.9); WHITE BLOOD COUNT 4.4 K/mm3 (4.0-10.0)
[2019-08-20 07:32] LABS: BLOOD UREA NITROGEN 18.2 mg/dL (7-18); CALCIUM 9.2 mg/dL (8.5-10.1); CREATININE 1.2 mg/dL (0.55-1.3); POTASSIUM 3.8 mmol/L (3.5-5.1)
[2019-08-20] MEDS ORDERED: ASPIRIN COATED 81 MG TABLET.EC ONE (07:59)
[2019-08-20] MEDS ORDERED: CARVEDILOL 12.5 MG TABLET (FP) ONE (07:59)
[2019-08-20] MEDS ORDERED: amLODIPine BESYLATE 5 MG TABLET (FP) ONE (07:59)
[2019-08-20] MEDS ORDERED: HEPARIN NA (PORCINE) 5,000 UNITS/ML 1ML VIAL ONE (08:00)
[2019-08-20] MEDS: amLODIPine BESYLATE 10 MG TABLET (FP) PO SCH (09:16)
[2019-08-20] MEDS: ASPIRIN COATED 81 MG TABLET.EC PO SCH (09:16)
[2019-08-20] MEDS: CARVEDILOL 25 MG TABLET (FP) PO SCH ×2 (09:16→22:16)
[2019-08-20] MEDS: HEPARIN NA (PORCINE) 5,000 UNITS/ML 1ML VIAL SQ SCH ×2 (09:16→22:16)
[2019-08-20] MEDS: FEBUXOSTAT 40 MG TAB PO SCH (11:37)
[2019-08-20] MEDS: BUDESONIDE/FORMETEROL FUMARATE 160/4.5 mcg INHALER IH SCH ×2 (11:37→22:16)
[2019-08-20] MEDS ORDERED: CEFTRIAXONE 1 GM in DEXTROSE 5%-WATER - 50 ML IVPB ONE (12:53)
--- NOTE | 2019-08-20 12:54 | PN ---
Progress Note, Physician Chief Complaint: patient seen and examiend says his left elbow and arm swelling is slightly better than when he came in to hospital - Current Medication List Current Medications: Active Medications Acetaminophen (Tylenol -) 650 mg PO Q6H PRN PRN Reason: PAIN LEVEL 1-5 Amlodipine Besylate (Norvasc -) 10 mg PO DAILY [facility] Last Admin: 08/20/19 09:16 Dose: 10 mg Aspirin (Ecotrin -) 81 mg PO DAILY [facility] Last Admin: 08/20/19 09:16 Dose: 81 mg Budesonide/Formoterol Fumarate (Symbicort 160/4.5mcg -) 2 puff IH BID [facility] Last Admin: 08/20/19 11:37 Dose: 2 puff Carvedilol (Coreg -) 25 mg PO BID [facility] Last Admin: 08/20/19 09:16 Dose: 25 mg Ergocalciferol (Drisdol -) 50,000 unit PO Tu@1000 [facility] Febuxostat (Uloric -) 40 mg PO DAILY [facility] Last Admin: 08/20/19 11:37 Dose: 40 mg Furosemide (Lasix -) 40 mg PO BIDLASIX [facility] Last Admin: 08/20/19 06:35 Dose: 40 mg Heparin Sodium (Porcine) (Heparin -) 5,000 unit SQ BID [facility] Last Admin: 08/20/19 09:16 Dose: 5,000 unit Rosuvastatin Calcium (Crestor -) 10 mg PO HS [facility] Last Admin: 08/19/19 22:39 Dose: 10 mg - Objective Vital Signs: Vital Signs Temperature 98.5 F 08/20/19 11:57 Pulse Rate 74 08/20/19 11:57 Respiratory Rate 18 08/20/19 11:57 Blood Pressure 145/71 08/20/19 11:57 O2 Sat by Pulse Oximetry (%) 99 08/20/19 11:57 Constitutional: Yes: Calm Cardiovascular: Yes: Regular Rate and Rhythm, S1, S2 Respiratory: Yes: CTA Bilaterally Gastrointestinal: Yes: Normal Bowel Sounds, Soft Musculoskeletal: Yes: Other (left arm and eblow swelling noted fluctuant swelling posterior surface) Neurological: Yes: Alert, Oriented Labs: CBC, BMP 08/20/19 06:20 08/20/19 06:20 Problem List - Problems (1) Left arm swelling Assessment/Plan: no dvt noted iv abx ID eval Code(s): M79.89 - OTHER SPECIFIED SOFT TISSUE DISORDERS (2) Cellulitis Assessment/Plan: fluid sample sent in ER awaiting results iv abx Code(s): L03.90 - CELLULITIS, UNSPECIFIED Qualifiers: Site of cellulitis: extremity Site of cellulitis of extremity: upper extremity Laterality: left Qualified Code(s): L03.114 - Cellulitis of left upper limb (3) Gout Assessment/Plan: uloric Code(s): M10.9 - GOUT, UNSPECIFIED (4) CAD (coronary artery disease) Assessment/Plan: aspirin coreg and crestor Code(s): I25.10 - ATHSCL HEART DISEASE OF [place] CORONARY ARTERY W/O ANG PCTRS (5) HLD (hyperlipidemia) Assessment/Plan: crestor Code(s): E78.5 - HYPERLIPIDEMIA, UNSPECIFIED
[2019-08-20] MEDS ORDERED: VANCOMYCIN 1 GRAM (PRE-DOCKED) 1,000 MG/250 ML BAG IVPB ONE (13:00)
[2019-08-20] MEDS ORDERED: DEXTROSE 5%-WATER - 50 ML IVPB ONE (15:32)
[2019-08-20] MEDS ORDERED: cefTRIAXone SODIUM 1 GM VIAL ONE (15:32)
--- NOTE | 2019-08-20 16:50 | CON.ID ---
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 - History Source History Provided By: Patient, Medical Record Limitations to Obtaining History: No Limitations - Past Medical History Cardio/Vascular: Yes: CAD, CHF, HTN Pulmonary: Yes: Asthma Rheumatology: Yes: Gout - Past Surgical History Past Surgical History: Yes: Cataract Removal - Alcohol/Substance Use Hx Alcohol Use: Yes (SOCIAL) History of Substance Use: reports: None - Smoking History Smoking history: Never smoked Have you smoked in the past 12 months: No - Social History Usual Living Arrangement: With Spouse ADL: Independent Occupation: production or plant engineer for [employer] Place of : Other ([place]) History of Recent Travel: No Home Medications - Allergies Allergies/Adverse Reactions: Allergies Allergy/AdvReac Type Severity Reaction Status Date / Time No Known Allergies Allergy Verified 08/19/19 15:35 - Home Medications Home Medications: Ambulatory Orders Rosuvastatin [Crestor -] 10 mg PO HS 08/30/16 Amlodipine Besylate [Norvasc -] 10 mg PO DAILY #30 tablet 09/03/16 Carvedilol [Coreg -] 25 mg PO BID #60 tablet 09/03/16 Aspirin 81 mg PO DAILY 12/03/18 Budesonide/Formeterol Fumarate [SYMBICORT 160/4.5mcg -] 1 inh PO DAILY 08/19/19 Cholecalciferol (Vitamin D3) [Vitamin D3 -] 50,000 unit PO WEEKLY 08/19/19 Clindamycin [Cleocin -] 300 mg PO TID 08/19/19 Febuxostat [Uloric] 40 mg PO DAILY PRN 08/19/19 Furosemide [Lasix -] 40 mg PO BID 08/19/19 Family Medical History Family History: Unremarkable Review of Systems - Review of Systems Constitutional: denies: Chills, Fever Eyes: reports: No Symptoms HENT: reports: No Symptoms Neck: reports: No Symptoms Cardiovascular: reports: No Symptoms Respiratory: reports: No Symptoms Gastrointestinal: reports: No Symptoms Genitourinary: reports: No Symptoms Breasts: reports: No Symptoms Reported Physical Exam Vital Signs: Vital Signs Temperature 98.5 F 08/20/19 11:57 Pulse Rate 74 08/20/19 11:57 Respiratory Rate 18 08/20/19 11:57 Blood Pressure 145/71 08/20/19 11:57 O2 Sat by Pulse Oximetry (%) 99 08/20/19 11:57 Constitutional: Yes: Well Nourished, No Distress, Calm Eyes: Yes: Conjunctiva Clear, EOM Intact HENT: Yes: Atraumatic, Normocephalic Neck: Yes: Supple Cardiovascular: Yes: Regular Rate and Rhythm Respiratory: Yes: Regular, CTA Bilaterally Gastrointestinal: Yes: Normal Bowel Sounds, Soft Extremities: Yes: Other (right elbow- bursa is boggy, with area of induration 7 by 5 cm -slight warmth hyperpigmented, no erythema noted) Psychiatric: Yes: Alert, Oriented Labs: CBC, BMP 08/20/19 06:20 08/20/19 06:20 Microbiology 08/20/19 19:27 Synovial Fluid - Elbow Body Fluid Culture - Preliminary Laboratory Tests 08/20/19 08/20/19 13:35 13:35 ESR 13 C-Reactive Protein 1.6 H Imaging - Results X-ray: Report Reviewed Ultrasound: Report Reviewed (negative for DVT) Problem List - Problems (1) Left arm swelling Code(s): M79.89 - OTHER SPECIFIED SOFT TISSUE DISORDERS (2) Soft tissue infection Code(s): L08.9 - LOCAL INFECTION OF THE SKIN AND SUBCUTANEOUS TISSUE, UNSP Assessment/Plan await ortho eval ultrasound the indurated area to r/o abscess (was aspirated in ED) f/u cultures continue rocephin
[2019-08-20 18:19] VITALS: BMI 30.9
[2019-08-20] MEDS: ROSUVASTATIN CA 10 MG TABLET (FP) PO SCH (22:16)
[2019-08-21] MEDS: FUROSEMIDE 40 MG TABLET (FP) PO SCH ×2 (05:34→14:55)
[2019-08-21] MEDS ORDERED: cefTRIAXone SODIUM 1 GM VIAL ONE (08:50)
[2019-08-21] MEDS ORDERED: DEXTROSE 5%-WATER - 50 ML IVPB ONE (08:50)
[2019-08-21 08:57] LABS: BASO % 0.4 % (0-2.0); EOS % 8.2 % (0-4.5); HEMATOCRIT 44.9 % (35.4-49); HEMOGLOBIN 14.7 GM/dL (11.7-16.9); LYMPH % 23.5 % (8-40); MCH 27.5 pg (25.7-33.7); MCHC 32.7 g/dl (32.0-35.9); MEAN CELL VOLUME 84.3 fl (80-96); MEAN PLT VOLUME 9.8 fl (7.5-11.1); MONO % 9.2 % (3.8-10.2); NEUT % 58.7 % (42.8-82.8); PLATELET COUNT 182 K/MM3 (134-434); RBC 5.33 M/mm3 (4.00-5.60); RDW 14.9 % (11.9-15.9); WHITE BLOOD COUNT 4.6 K/mm3 (4.0-10.0)
[2019-08-21 09:16] LABS: ALBUMIN 3.2 g/dl (3.4-5.0); BILIRUBIN,TOTAL 0.4 mg/dL (0.2-1); BLOOD UREA NITROGEN 15.2 mg/dL (7-18); CALCIUM 9.1 mg/dL (8.5-10.1); CREATININE 1.1 mg/dL (0.55-1.3); POTASSIUM 3.9 mmol/L (3.5-5.1); TOT PROT 6.7 g/dl (6.4-8.2)
[2019-08-21] MEDS: ASPIRIN COATED 81 MG TABLET.EC PO SCH (09:45)
[2019-08-21] MEDS: amLODIPine BESYLATE 10 MG TABLET (FP) PO SCH (09:46)
[2019-08-21] MEDS: CARVEDILOL 25 MG TABLET (FP) PO SCH ×2 (09:46→23:06)
[2019-08-21] MEDS: HEPARIN NA (PORCINE) 5,000 UNITS/ML 1ML VIAL SQ SCH ×2 (09:46→23:07)
[2019-08-21] MEDS: CEFTRIAXONE 1 GM in DEXTROSE 5%-WATER - 50 ML IVPB SCH (09:46)
[2019-08-21] MEDS ORDERED: PT OWN MED DRAWER 7, Y5N ONE (09:52)
[2019-08-21] MEDS: FEBUXOSTAT 40 MG TAB PO SCH (09:54)
[2019-08-21] MEDS: BUDESONIDE/FORMETEROL FUMARATE 160/4.5 mcg INHALER IH SCH ×2 (09:54→23:06)
--- NOTE | 2019-08-21 10:29 | CON.ORTH ---
Consult Reason for Consultation:: left elbow pain/swelling - Past Medical History Cardio/Vascular: Yes: CAD, CHF, HTN Pulmonary: Yes: Asthma Rheumatology: Yes: Gout - Past Surgical History Past Surgical History: Yes: Cataract Removal - Alcohol/Substance Use Hx Alcohol Use: Yes (SOCIAL) History of Substance Use: reports: None - Smoking History Smoking history: Never smoked Have you smoked in the past 12 months: No - Social History Usual Living Arrangement: With Spouse ADL: Independent Occupation: outside production inspector for [employer] History of Recent Travel: No Home Medications - Allergies Allergies/Adverse Reactions: Allergies Allergy/AdvReac Type Severity Reaction Status Date / Time No Known Allergies Allergy Verified 08/19/19 15:35 - Home Medications Home Medications: Ambulatory Orders Rosuvastatin [Crestor -] 10 mg PO HS 08/30/16 Amlodipine Besylate [Norvasc -] 10 mg PO DAILY #30 tablet 09/03/16 Carvedilol [Coreg -] 25 mg PO BID #60 tablet 09/03/16 Aspirin 81 mg PO DAILY 12/03/18 Budesonide/Formeterol Fumarate [SYMBICORT 160/4.5mcg -] 1 inh PO DAILY 08/19/19 Cholecalciferol (Vitamin D3) [Vitamin D3 -] 50,000 unit PO WEEKLY 08/19/19 Clindamycin [Cleocin -] 300 mg PO TID 08/19/19 Febuxostat [Uloric] 40 mg PO DAILY PRN 08/19/19 Furosemide [Lasix -] 40 mg PO BID 08/19/19 Physical Exam for Ortho Vital Signs: Vital Signs Temperature 98.8 F 08/21/19 05:28 Pulse Rate 60 08/21/19 05:28 Respiratory Rate 18 08/21/19 05:28 Blood Pressure 137/78 08/21/19 05:28 O2 Sat by Pulse Oximetry (%) 98 08/20/19 21:00 Labs: CBC, BMP 08/21/19 07:45 08/21/19 07:45 - Upper Extremity Elbow: Yes: Left, Pain, Tenderness, Other (small area of swelling, no fluctuance , rom 0-120, nvi) Imaging - Results X-ray: Image Reviewed Assessment/Plan 9-year-old male PMHx of hypertension, CHF, gout arrived to ED for evaluation of left elbow pain, swelling and erythema for the past 2 weeks. Patient reports symptoms started after having a blood draw done in left antecubital. As patient has a history of gout he was started on Uloric and has been taking colchicine with minimal relief of symptoms. Patient was seen by PMD started on Keflex, after completing antibiotic therapy symptoms did not improve and patient was started on clindamycin. Patient has been taking clindamycin for 2 days without improvement, PMD referred patient emergency department for inpatient admission of IV antibiotics. Pt had elbow aspirated and cultures are neg to date. Pt currently feeling better with less swelling and no erythema. a/p left elbow cellulitis- improving No surgical intervention continue IV abx as per ID ROM exercises d/c as per med/ID d/w Dr. West
--- NOTE | 2019-08-21 15:58 | PN ---
Progress Note, Physician Chief Complaint: patient seen and examined elbow sweling much imoroved - Current Medication List Current Medications: Active Medications Acetaminophen (Tylenol -) 650 mg PO Q6H PRN PRN Reason: PAIN LEVEL 1-5 Amlodipine Besylate (Norvasc -) 10 mg PO DAILY [facility] Last Admin: 08/21/19 09:46 Dose: 10 mg Aspirin (Ecotrin -) 81 mg PO DAILY [facility] Last Admin: 08/21/19 09:45 Dose: 81 mg Budesonide/Formoterol Fumarate (Symbicort 160/4.5mcg -) 2 puff IH BID [facility] Last Admin: 08/21/19 09:54 Dose: 2 puff Carvedilol (Coreg -) 25 mg PO BID [facility] Last Admin: 08/21/19 09:46 Dose: 25 mg Ergocalciferol (Drisdol -) 50,000 unit PO Tu@1000 [facility] Febuxostat (Uloric -) 40 mg PO DAILY [facility] Last Admin: 08/21/19 09:54 Dose: 40 mg Furosemide (Lasix -) 40 mg PO BIDLASIX [facility] Last Admin: 08/21/19 14:55 Dose: 40 mg Heparin Sodium (Porcine) (Heparin -) 5,000 unit SQ BID [facility] Last Admin: 08/21/19 09:46 Dose: 5,000 unit Ceftriaxone Sodium 1 gm/ (Dextrose) 50 mls @ 100 mls/hr IVPB DAILY [facility]; Protocol Last Admin: 08/21/19 09:46 Dose: 100 mls/hr Rosuvastatin Calcium (Crestor -) 10 mg PO HS [facility] Last Admin: 08/20/19 22:16 Dose: 10 mg - Objective Vital Signs: Vital Signs Temperature 98 F 08/21/19 14:00 Pulse Rate 70 08/21/19 14:00 Respiratory Rate 19 08/21/19 14:00 Blood Pressure 140/82 08/21/19 14:00 O2 Sat by Pulse Oximetry (%) 98 08/21/19 09:00 Constitutional: Yes: Calm Cardiovascular: Yes: Regular Rate and Rhythm, S1, S2 Respiratory: Yes: CTA Bilaterally Gastrointestinal: Yes: Normal Bowel Sounds, Soft Extremities: Yes: Other (elbow and arm swelling much reduced) Labs: CBC, BMP 08/21/19 07:45 08/21/19 07:45 Problem List - Problems (1) Left arm swelling Assessment/Plan: no dvt noted iv abx rocephin seen by orhto as well Code(s): M79.89 - OTHER SPECIFIED SOFT TISSUE DISORDERS (2) Cellulitis Assessment/Plan: iv abx rocephin Microbiology 08/20/19 19:27 Synovial Fluid - Elbow Gram Stain - Final 08/19/19 19:45 Elbow - Left Gram Stain - Final 08/20/19 19:27 Synovial Fluid - Elbow Body Fluid Culture - Preliminary NO AEROBIC GROWTH, 24 HRS 08/19/19 19:45 Elbow - Left Wound Culture - Preliminary NO GROWTH OBTAINED AFTER 24 HOURS INCUBATION, REINCUBATED. Code(s): L03.90 - CELLULITIS, UNSPECIFIED Qualifiers: Site of cellulitis: extremity Site of cellulitis of extremity: upper extremity Laterality: left Qualified Code(s): L03.114 - Cellulitis of left upper limb (3) Gout Assessment/Plan: uloric Code(s): M10.9 - GOUT, UNSPECIFIED (4) CAD (coronary artery disease) Assessment/Plan: aspirin coreg and crestor Code(s): I25.10 - ATHSCL HEART DISEASE OF [place] CORONARY ARTERY W/O ANG PCTRS (5) HLD (hyperlipidemia) Code(s): E78.5 - HYPERLIPIDEMIA, UNSPECIFIED
--- NOTE | 2019-08-21 16:46 | PN ---
Progress Note (short form) - Note Progress Note: no complaints arm continues to improve Vital Signs Period Temp Pulse Resp BP Sys/Ruiz Pulse Ox Last 24 Hr 98 F-98.8 F 60-85 17-19 116-157/71-97 98-98 cor-rrr lungs clear abd soft,nt ext less induration of the forearm, edema resolved from of the elbow joint CBC, BMP 08/21/19 07:45 08/21/19 07:45 Microbiology 08/20/19 19:27 Synovial Fluid - Elbow Gram Stain - Final 08/20/19 19:27 Synovial Fluid - Elbow Body Fluid Culture - Preliminary NO AEROBIC GROWTH, 24 HRS 08/19/19 19:45 Elbow - Left Gram Stain - Final 08/19/19 19:45 Elbow - Left Wound Culture - Preliminary NO GROWTH OBTAINED AFTER 24 HOURS INCUBATION, REINCUBATED. 08/19/19 19:45 Blood - Peripheral Venous Blood Culture - Preliminary NO GROWTH OBTAINED AFTER 24 HOURS, INCUBATION TO CONTINUE FOR 4 DAYS. 08/19/19 19:45 Blood - Peripheral Venous Blood Culture - Preliminary NO GROWTH OBTAINED AFTER 24 HOURS, INCUBATION TO CONTINUE FOR 4 DAYS. a/p day #3 antiibotics on rocephin f/u ultrasound if arm continues to improve can switch to ceftin 500 bid for another 7 days Problem List - Problems (1) Left arm swelling Code(s): M79.89 - OTHER SPECIFIED SOFT TISSUE DISORDERS (2) Soft tissue infection Code(s): L08.9 - LOCAL INFECTION OF THE SKIN AND SUBCUTANEOUS TISSUE, UNSP
[2019-08-21] MEDS: ROSUVASTATIN CA 10 MG TABLET (FP) PO SCH (23:06)
[2019-08-22] MEDS: FUROSEMIDE 40 MG TABLET (FP) PO SCH ×2 (05:14→13:31)
[2019-08-22] MEDS ORDERED: cefTRIAXone SODIUM 1 GM VIAL ONE (08:55)
[2019-08-22] MEDS ORDERED: DEXTROSE 5%-WATER - 50 ML IVPB ONE (08:55)
[2019-08-22] MEDS: CARVEDILOL 25 MG TABLET (FP) PO SCH (09:14)
[2019-08-22] MEDS: HEPARIN NA (PORCINE) 5,000 UNITS/ML 1ML VIAL SQ SCH (09:14)
[2019-08-22] MEDS: ASPIRIN COATED 81 MG TABLET.EC PO SCH (09:14)
[2019-08-22] MEDS: amLODIPine BESYLATE 10 MG TABLET (FP) PO SCH (09:14)
[2019-08-22] MEDS: CEFTRIAXONE 1 GM in DEXTROSE 5%-WATER - 50 ML IVPB SCH (09:15)
[2019-08-22] MEDS ORDERED: PT OWN MED DRAWER 7, Y5N ONE (09:17)
[2019-08-22] MEDS: FEBUXOSTAT 40 MG TAB PO SCH (09:21)
[2019-08-22] MEDS: BUDESONIDE/FORMETEROL FUMARATE 160/4.5 mcg INHALER IH SCH (09:22)
[2019-08-22] MEDS ORDERED: COLCHICINE 0.6 MG CAP PO ONE (12:19)
--- NOTE | 2019-08-22 12:25 | DS ---
Physical Examination Vital Signs: Vital Signs Temperature 98 F 08/22/19 09:00 Pulse Rate 79 08/22/19 09:00 Respiratory Rate 18 08/22/19 09:00 Blood Pressure 161/87 08/22/19 09:00 O2 Sat by Pulse Oximetry (%) 94 L 08/22/19 09:00 Findings/Remarks: events and notes reviewed dc home po antibiotics and colchicine Constitutional: Yes: Mild Distress Cardiovascular: Yes: Regular Rate and Rhythm Respiratory: Yes: WNL Gastrointestinal: Yes: WNL Musculoskeletal: Yes: Muscle Pain Extremities: Yes: WNL Edema: No Peripheral Pulses WNL: Yes Integumentary: Yes: WNL Wound/Incision: Yes: Clean/Dry Neurological: Yes: WNL ...Motor Strength: WNL Psychiatric: Yes: WNL Labs: CBC, BMP 08/21/19 07:45 08/21/19 07:45 Discharge Summary Problems reviewed: Yes Reason For Visit: CELLULITIS Current Active Problems CAD (coronary artery disease) (Acute) CHF (congestive heart failure) (Acute) Cellulitis (Acute) Gout (Acute) HLD (hyperlipidemia) (Acute) HTN (hypertension) (Acute) Left arm swelling (Acute) Soft tissue infection (Acute) Procedures: Principal: XRAYS/LABS/SONO Hospital Course: ADMITTED CELLULITIS TREATED WITH IV ABX, GOUT ATTACK ALSO, TREAT ON CHOLCHICINE AT HOME F/U WITH DR BOWERS IN 3 DAYS Plan of Treatment: KEFLEX 500MG BID 7 DAYS CHOLCHICINE TID FOR [address] BOWERS IN 3 DAYS Goals: BP/LIPID CONTROL GOUT DIET DISCUSSED Condition: Fair - Instructions Diet, Activity, Other Instructions: SEE DR BOWERS IN 3 DAYS GOUT DIET LOW SALT Referrals: No Bowers MD [Primary Care Provider] - Disposition: HOME - Home Medications Comprehensive Discharge Medication List: Ambulatory Orders Rosuvastatin [Crestor -] 10 mg PO HS 08/30/16 Amlodipine Besylate [Norvasc -] 10 mg PO DAILY #30 tablet 09/03/16 Carvedilol [Coreg -] 25 mg PO BID #60 tablet 09/03/16 Aspirin 81 mg PO DAILY 12/03/18 Budesonide/Formeterol Fumarate [SYMBICORT 160/4.5mcg -] 1 inh PO DAILY 08/19/19 Cholecalciferol (Vitamin D3) [Vitamin D3 -] 50,000 unit PO WEEKLY 08/19/19 Clindamycin [Cleocin -] 300 mg PO TID 08/19/19 Febuxostat [Uloric] 40 mg PO DAILY PRN 08/19/19 Furosemide [Lasix -] 40 mg PO BID 08/19/19
[2019-08-22 13:16] VITALS: BP 133/83; PULSE 80; TEMP 98.3
[2019-08-22] MEDS ORDERED: COLCHICINE 0.6 MG CAP PO SCH (22:00)
[2019-08-22] MEDS ORDERED: CEPHALEXIN MONOHYDRATE 500 MG CAPSULE (UD) PO SCH (22:00)
[2019-08-25] MEDS ORDERED: ERGOCALCIFEROL (VIT D2) 50,000 UNIT (1.25 MG) CAPSULE PO SCH (10:00)
== END 2019-08-22 14:49 | disposition home or self-care (01) | DRG 603 ==
LOC: JER 15:21 → JERBED 19:41 → J5S 08-20 12:19
PROVIDERS: ADMIT Family Medicine; ATTEND Family Medicine
DX: L03.114 Cellulitis of left upper limb (principal); M10.9 Gout, unspecified; I25.10 Atherosclerotic heart disease of native coronary artery without angina pectoris; J45.909 Unspecified asthma, uncomplicated; I11.0 Hypertensive heart disease with heart failure; I50.9 Heart failure, unspecified; E78.5 Hyperlipidemia, unspecified; M79.89 Other specified soft tissue disorders; L08.9 Local infection of the skin and subcutaneous tissue, unspecified
CPT/HCPCS: 36415; 71046-TC-FY; 73070-TC-LT-FY; 76882-TC-RT-FY; 80048; 80053; 84550; 85025; 85027; 85651; 86140; 87040; 87070; 87075; 87205; 93971; 99285-25; J1644